=== PATIENT | female | born 1955 | race Hispanic/Latino ===

== ENCOUNTER 2017-02-08 06:53 | Day surgery (SDC) | payer BC ==
[2017-02-06 10:22] VITALS: BMI 26.4
[2017-02-08] MEDS ORDERED: Propofol 10 mg/ml Inj (20 ML) ONE (09:20)
[2017-02-08] MEDS ORDERED: Midazolam 2 MG/2 ML VIAL ONE (09:30)
[2017-02-08] MEDS ORDERED: Lactated Ringer's 1,000 ML IV SCH (10:38)
[2017-02-08 11:20] VITALS: TEMP 98
[2017-02-08 11:24] VITALS: BP 122/72; PULSE 56; RESP 14; O2SAT 100
--- NOTE | 2017-02-08 22:09 | CARD ---
APPROVED REPORT EKG Measurement Heart [id number] <Conclusion> Normal sinus rhythm Normal ECG
== END 2017-02-08 12:02 | disposition home or self-care (01) ==
LOC: ENDO 06:53
PROVIDERS: ATTEND Internal Medicine Gastroenterology
DX: K21.0 Gastro-esophageal reflux disease with esophagitis (principal); K29.50 Unspecified chronic gastritis without bleeding; K52.9 Noninfective gastroenteritis and colitis, unspecified; K64.8 Other hemorrhoids; D12.4 Benign neoplasm of descending colon; B96.81 Helicobacter pylori [H. pylori] as the cause of diseases classified elsewhere
CPT/HCPCS: 43239; 45385; 88305; 88312; 88342; 93005; J2001; J2250; J2704; J3010; J7040; J7120

== ENCOUNTER 2017-11-12 07:18 | Day surgery (SDC) | payer BC ==
[2017-02-06 10:22] VITALS: BMI 26.4
[2017-11-12] MEDS ORDERED: Propofol 10 mg/ml Inj (20 ML) ONE (08:52)
[2017-11-12] MEDS ORDERED: Lactated Ringer's 1,000 ML IV SCH (09:00)
[2017-11-12 10:32] VITALS: BP 135/76; PULSE 56; RESP 15; TEMP 97.5; O2SAT 100
== END 2017-11-12 11:00 | disposition home or self-care (01) ==
LOC: ENDO 07:18
PROVIDERS: ATTEND Internal Medicine Gastroenterology
DX: K21.0 Gastro-esophageal reflux disease with esophagitis (principal); K29.50 Unspecified chronic gastritis without bleeding; K25.9 Gastric ulcer, unspecified as acute or chronic, without hemorrhage or perforation; K29.80 Duodenitis without bleeding
CPT/HCPCS: 43239; 88305; 88312; 88342; J2001; J2704; J3010; J7040; J7120

== ENCOUNTER 2018-10-27 07:37 | Outpatient (CLI) | payer MEDICARE, BC | END 2018-10-27 07:38 | disposition home or self-care (01) | LOC: RAD 07:37 ==

== ENCOUNTER 2018-11-20 10:16 | Outpatient (CLI) | payer MEDICARE, BC | END 2018-11-20 10:17 | disposition home or self-care (01) | LOC: RAD 10:16 | DX: Z12.31 Encounter for screening mammogram for malignant neoplasm of breast (principal); E04.9 Nontoxic goiter, unspecified ==

== ENCOUNTER 2018-12-09 11:12 | Outpatient (CLI) | payer MEDICARE, BC | END 2018-12-09 11:13 | disposition home or self-care (01) | LOC: RAD 11:12 ==

== ENCOUNTER 2019-02-06 07:30 | Outpatient (CLI) | payer MEDICARE, BC | END 2019-02-06 07:31 | disposition home or self-care (01) | LOC: RAD 07:30 ==

== ENCOUNTER 2019-02-09 07:43 | Outpatient (CLI) | payer MEDICARE, BC | END 2019-02-09 07:44 | disposition home or self-care (01) | LOC: RAD 07:43 ==